=== PATIENT | male | born 2000 | race Caucasian/White ===

== ENCOUNTER 2021-10-03 11:29 | Outpatient (CLI) | payer OTHER, SELFPAY ==
[2021-10-03 12:19] LABS: SARS-CoV-2 Ag Negative (Negative)
== END 2021-10-03 11:30 | disposition home or self-care (01) ==
LOC: CHSLAB 11:34
PROVIDERS: PCP Nurse Practitioner; Visit Provider Nurse Practitioner
DX: Z20.822 Contact with and (suspected) exposure to COVID-19 (principal)
CPT/HCPCS: 87426; C9803